=== PATIENT | male | born 1975 | race Caucasian/White ===

== ENCOUNTER → 2016-07-07 | Outpatient (CLI) | payer BC ==
--- NOTE | 2016-07-07 13:17 | CR ---
EXAMINATION: Lumbar spine HISTORY: Back pain COMPARISON: None TECHNIQUE: The lumbar spinal alignment is normal. The vertebral body heights and disc spaces appear well-maintained. Mild marginal osteophytes are noted. There is no fracture or acute osseous abnormal ity. Bone mineralization is normal. The SI joints are symmetric. FINDINGS/IMPRESSION: Early degenerative changes without acute findings.
== END ==
LOC: MW.CHIM 09:47
PROVIDERS: ATTEND Internal Medicine
DX: M54.9 Dorsalgia, unspecified (principal)
CPT/HCPCS: 72100; 72100-26

== ENCOUNTER 2018-11-25 04:11 | Emergency (ER) | payer BC ==
[2018-11-25] MEDS ORDERED: Sodium Chloride 0.9% 10 ML Syringe FLUSH PRN (04:12)
[2018-11-25] MEDS ORDERED: Sodium Chloride 0.9% 2.5 ML Syringe FLUSH PRN (04:12)
[2018-11-25] MEDS ORDERED: Ondansetron 4 MG/2 ML SDV IVPUSH ONE (04:19)
[2018-11-25] MEDS ORDERED: Sodium Chloride 0.9% 1,000 ML IV ONE (04:19)
[2018-11-25] MEDS ORDERED: Aspirin 81 MG Tab.Chew PO ONE (04:19)
[2018-11-25] MEDS ORDERED: Morphine 2 MG/ML Syringe IVPUSH ONE (04:19)
--- NOTE | 2018-11-25 04:24 | EDM.PDOC ---
ED HPI GENERAL MEDICAL PROBLEM - General Chief Complaint: Chest Pain Stated Complaint: CHEST PAIN, SHORTNESS OF BREATH Time Seen by Provider: 11/25/18 04:15 - History of Present Illness INITIAL COMMENTS - FREE TEXT/NARRATIVE: HISTORY AND PHYSICAL: History of present illness: The patient is a 43-year-old male who has a history of gastric bypass and smokes about half a pack of tobacco a day and has no other cardiac pulmonary or GI history and presents with sudden onset of bilateral chest pain underneath his breast area in the lower ribs radiating to his back that started while he was sleeping at 3:30 AM, proximally 45 minutes ago. The patient says that he had a normal day yesterday and a normally without nausea vomiting abdominal pain diarrhea chest pain or shortness of breath and has had no fevers chills or upper respiratory symptomatology. He said no urinary issues. He said he had a little bit of nausea yesterday but it went away and he did eat normally for dinner. He has no history of food intolerance and has never had any gallbladder issues that she is aware of peptic ulcer disease. He doesn't take a lot of medications for heartburn but does have heartburn on any regular basis. The patient says he was asleep and was awakened suddenly find this discomfort which felt like somebody had their hands around him and were squeezing him on both sides his lower chest wall radiating to his back. He was nauseated with this and very short of breath and he said that he rolled up into a ball because of the discomfort. When it woke him from sleep he rated as a 5/10 and then it went up to a 9/10 and is currently a 4/10 here in the ED and he did not take any medication for it. He has no leg pain or swelling. He currently denies any abdominal discomfort and denies any recent trauma. He says the pain is more inside and he feels like he can't take a deep breath because of the squeezing pressure pain. He says in the past he had high cholesterol but after his gastric bypass that seemed to resolve and he was taken off medications and he has no history of hypertension. Other than tobacco use has no significant social history and no significant family cardiac history Review of systems: As per history of present illness and below otherwise all systems reviewed and negative. Past medical history: As per history of present illness and as reviewed below otherwise noncontributory. Surgical history: As per history of present illness and as reviewed below otherwise noncontributory. Social history: No reported history of drug or alcohol abuse. Family history: As per history of present illness and as reviewed below otherwise noncontributory. Physical exam: General: Well-developed well-nourished man who looks uncomfortable but is speaking clearly without breathlessness and vital signs are noted by me. HEENT: Atraumatic, normocephalic, pupils reactive, negative for conjunctival pallor or scleral icterus, mucous membranes moist, throat clear, neck supple, nontender, trachea midline. Lungs: Clear to auscultation, breath sounds equal bilaterally, chest nontender. 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 Heart: S1S2, regular, negative for clicks, rubs, or JVD. Abdomen: Soft, nondistended, nontender. Negative for masses or hepatosplenomegaly. Negative for costovertebral tenderness. No stones are mildly hypoactive and there is absolutely no tenderness on deep palpation no tympani no rebound and no guarding Pelvis: Stable nontender. Genitourinary: Deferred. Rectal: Deferred. Extremities: Atraumatic, negative for cords or calf pain. Neurovascular unremarkable. No pedal edema Neuro: Awake, alert, oriented. Cranial nerves II through XII unremarkable. Cerebellum unremarkable. Motor and sensory unremarkable throughout. Exam nonfocal. Diagnostics: EKG chest x-ray CBC CMP amylase lipase INR troponin UA with reflex CT scan of the chest abdomen and pelvis Therapeutics: IV O2 monitor IV fluids aspirin morphine Blood pressure has normalized and patient has been resting comfortably without any pain or shortness of breath since arrival and receiving medications. We are currently awaiting the CT scan results and I will discuss all results with the patient and family at bedside. Patient and significant other bedside are aware of all testing results and the supposition that this was an episode of biliary colic as there is some mild kristen -cholecystic fluid without stones or gallbladder inflammation. I've advised the patient eat a low-fat diet and to follow-up with Dr. Osei and or our surgical group to have more testing on his gallbladder and to continue to monitor his symptoms. I will give him some medications for home and have advised him to push hydration and return as needed Impression: Upper abdominal/chest pain, likely biliary colic Definitive disposition and diagnosis as appropriate pending reevaluation and review of above. chest Pain Score (Numeric/FACES): 4 - Related Data Allergies Allergy/AdvReac Type Severity Reaction Status Date / Time No Known Allergies Allergy Verified 11/25/18 04:17 Home Meds: Home Meds . [No Known Home Meds] 02/15/14 [History] Past Medical History HEENT History: Reports: None Cardiovascular History: Reports: None Respiratory History: Reports: None Genitourinary History: Reports: None Musculoskeletal History: Reports: None Neurological History: Reports: None Psychiatric History: Reports: None Endocrine/Metabolic History: Reports: None Hematologic History: Reports: None Oncologic (Cancer) History: Reports: None Dermatologic History: Reports: None - Past Surgical History Other GI Surgeries/Procedures: gastric bypass Social & Family History - Family History Family Medical History: Noncontributory - Tobacco Use Smoking Status *Q: Current Every Day Smoker Years of Tobacco use: 20 Packs/Tins Daily: 0.5 - Recreational Drug Use Recreational Drug Use: No ED ROS GENERAL - Review of Systems Review Of Systems: ROS reveals no pertinent complaints other than HPI. ED EXAM, GENERAL - Physical Exam Exam: See Below (see Dictation) Course - Vital Signs Last Recorded V/S: Last Vital Signs Temp 36.3 C 11/25/18 04:14 Pulse 60 11/25/18 05:33 Resp 18 11/25/18 05:33 BP 119/77 11/25/18 05:33 Pulse Ox 100 11/25/18 05:33 - Orders/Labs/Meds Orders: Active Orders 24 hr Category Date Time Status Cardiac Monitoring [RC] . DIRECTED Care 11/25/18 04:12 Active EKG Documentation Completion [RC] STAT Care 11/25/18 04:12 Active Oxygen Therapy, ED [RC] ASDIRECTED Care 11/25/18 04:12 Active Pulse Oximetry [RC] ASDIRECTED Care 11/25/18 04:12 Active Sodium Chloride 0.9% [Saline Flush] Med 11/25/18 04:12 Active 10 ml FLUSH ASDIRECTED PRN Sodium Chloride 0.9% [Saline Flush] Med 11/25/18 04:12 Active 2.5 ml FLUSH ASDIRECTED PRN Saline Lock Insert [OM.PC] Stat Oth 11/25/18 04:12 Ordered Medication Orders Sodium Chloride (Saline Flush) 10 ml FLUSH ASDIRECTED PRN PRN Reason: Keep Vein Open Sodium Chloride (Saline Flush) 2.5 ml FLUSH ASDIRECTED PRN PRN Reason: Keep Vein Open Labs: Laboratory Tests 11/25/18 11/25/18 11/25/18 Range/Units 04:15 04:15 04:15 WBC 10.02 (4.0-11.0) K/uL RBC 4.91 (4.50-5.90) M/uL Hgb 14.6 (13.0-17.0) g/dL Hct 43.0 (38.0-50.0) % MCV 87.6 (80.0-98.0) fL MCH 29.7 (27.0-32.0) pg MCHC 34.0 (31.0-37.0) g/dL RDW Std Deviation 42.1 (28.0-62.0) fl RDW Coeff of Gabriel 13 (11.0-15.0) % Plt Count 199 (150-400) K/uL MPV 10.20 (7.40-12.00) fL Neut % (Auto) 47.2 L (48.0-80.0) % Lymph % (Auto) 41.9 H (16.0-40.0) % [place] % (Auto) 5.5 (0.0-15.0) % Eos % (Auto) 5.0 (0.0-7.0) % Baso % (Auto) 0.4 (0.0-1.5) % Neut # (Auto) 4.7 (1.4-5.7) K/uL Lymph # (Auto) 4.2 H (0.6-2.4) K/uL [place] # (Auto) 0.6 (0.0-0.8) K/uL Eos # (Auto) 0.5 (0.0-0.7) K/uL Baso # (Auto) 0.0 (0.0-0.1) K/uL Nucleated RBC % 0.0 /100WBC Nucleated RBCs # 0 K/uL INR 1.03 Sodium 143 (136-148) mmol/L Potassium 4.0 (3.5-5.1) mmol/L Chloride 107 (98-107) mmol/L Carbon Dioxide 22.6 (21.0-32.0) mmol/L BUN 16 (7.0-18.0) mg/dL Creatinine 1.1 (0.8-1.3) mg/dL Est Cr Clr Drug Dosing 94.06 mL/min Estimated GFR (MDRD) > 60.0 ml/min Glucose 98 (74-106) mg/dL Calcium 8.8 (8.5-10.1) mg/dL Total Bilirubin 0.6 (0.2-1.0) mg/dL AST 32 (15-37) IU/L ALT 25 (14-63) IU/L Alkaline Phosphatase 70 (46-116) U/L Troponin I < 0.050 (0.000-0.056) ng/mL Total Protein 7.0 (6.4-8.2) g/dL Albumin 3.9 (3.4-5.0) g/dL Globulin 3.1 (2.6-4.0) g/dL Albumin/Globulin Ratio 1.3 (0.9-1.6) Amylase 42 (25-115) U/L Lipase 123 (73-393) U/L Urine Color Urine Appearance Urine pH (5.0-8.0) Ur Specific [place] (1.001-1.035) Urine Protein (NEGATIVE) mg/dL Urine Glucose (UA) (NEGATIVE) mg/dL Urine Ketones (NEGATIVE) mg/dL Urine Occult Blood (NEGATIVE) Urine Nitrite (NEGATIVE) Urine Bilirubin (NEGATIVE) Urine Urobilinogen (<2.0) EU/dL Ur Leukocyte Esterase (NEGATIVE) 11/25/18 Range/Units 04:55 WBC (4.0-11.0) K/uL RBC (4.50-5.90) M/uL Hgb (13.0-17.0) g/dL Hct (38.0-50.0) % MCV (80.0-98.0) fL MCH (27.0-32.0) pg MCHC (31.0-37.0) g/dL RDW Std Deviation (28.0-62.0) fl RDW Coeff of Gabriel (11.0-15.0) % Plt Count (150-400) K/uL MPV (7.40-12.00) fL Neut % (Auto) (48.0-80.0) % Lymph % (Auto) (16.0-40.0) % [place] % (Auto) (0.0-15.0) % Eos % (Auto) (0.0-7.0) % Baso % (Auto) (0.0-1.5) % Neut # (Auto) (1.4-5.7) K/uL Lymph # (Auto) (0.6-2.4) K/uL [place] # (Auto) (0.0-0.8) K/uL Eos # (Auto) (0.0-0.7) K/uL Baso # (Auto) (0.0-0.1) K/uL Nucleated RBC % /100WBC Nucleated RBCs # K/uL INR Sodium (136-148) mmol/L Potassium (3.5-5.1) mmol/L Chloride (98-107) mmol/L Carbon Dioxide (21.0-32.0) mmol/L BUN (7.0-18.0) mg/dL Creatinine (0.8-1.3) mg/dL Est Cr Clr Drug Dosing mL/min Estimated GFR (MDRD) ml/min Glucose (74-106) mg/dL Calcium (8.5-10.1) mg/dL Total Bilirubin (0.2-1.0) mg/dL AST (15-37) IU/L ALT (14-63) IU/L Alkaline Phosphatase (46-116) U/L Troponin I (0.000-0.056) ng/mL Total Protein (6.4-8.2) g/dL Albumin (3.4-5.0) g/dL Globulin (2.6-4.0) g/dL Albumin/Globulin Ratio (0.9-1.6) Amylase (25-115) U/L Lipase (73-393) U/L Urine Color YELLOW Urine Appearance CLEAR Urine pH 6.0 (5.0-8.0) Ur Specific [place] 1.025 (1.001-1.035) Urine Protein NEGATIVE (NEGATIVE) mg/dL Urine Glucose (UA) NEGATIVE (NEGATIVE) mg/dL Urine Ketones NEGATIVE (NEGATIVE) mg/dL Urine Occult Blood NEGATIVE (NEGATIVE) Urine Nitrite NEGATIVE (NEGATIVE) Urine Bilirubin NEGATIVE (NEGATIVE) Urine Urobilinogen 0.2 (<2.0) EU/dL Ur Leukocyte Esterase NEGATIVE (NEGATIVE) Meds: Medications Generic Name Dose Route Start Last Admin Trade Name Freq PRN Reason Stop Dose Admin Sodium Chloride 10 ml 11/25/18 04:12 Saline Flush FLUSH ASDIRECTED PRN Keep Vein Open Sodium Chloride 2.5 ml 11/25/18 04:12 Saline Flush FLUSH ASDIRECTED PRN Keep Vein Open Discontinued Medications Generic Name Dose Route Start Last Admin Trade Name Freq PRN Reason Stop Dose Admin Aspirin 324 mg 11/25/18 04:19 11/25/18 04:24 Aspirin PO 11/25/18 04:20 324 mg ONETIME ONE Administration Sodium Chloride 1,000 mls @ 999 mls/hr 11/25/18 04:19 11/25/18 04:22 Normal Saline IV 11/25/18 05:19 999 mls/hr STAT ONE Administration Iopamidol 100 ml 11/25/18 05:21 11/25/18 05:21 Isovue Multipack-370 (76%) IVPUSH 11/25/18 05:22 100 ml ONETIME STA Administration Morphine Sulfate 4 mg 11/25/18 04:19 11/25/18 04:23 Morphine IVPUSH 11/25/18 04:20 4 mg ONETIME ONE Administration Ondansetron HCl 4 mg 11/25/18 04:19 11/25/18 04:23 Zofran IVPUSH 11/25/18 04:20 4 mg ONETIME ONE Administration Departure - Departure Time of Disposition: 06:40 Disposition: Home, Self-Care 01 Condition: Good Clinical Impression: Upper abdominal pain, Biliary colic, Atypical chest pain - Discharge Information Referrals: Veronica March [Primary Care Provider] - Forms: ED Department Discharge Additional Instructions: The following information is given to patients seen in the emergency department who are being discharged to home. This information is to outline your options for follow-up care. We provide all patients seen in our emergency department with a follow-up referral. The need for follow-up, as well as the timing and circumstances, are variable depending upon the specifics of your emergency department visit. If you don't have a primary care physician on staff, we will provide you with a referral. We always advise you to contact your personal physician following an emergency department visit to inform them of the circumstance of the visit and for follow-up with them and/or the need for any referrals to a consulting specialist. The emergency department will also refer you to a specialist when appropriate. This referral assures that you have the opportunity for followup care with a specialist. All of these measure are taken in an effort to provide you with optimal care, which includes your followup. Under all circumstances we always encourage you to contact your private physician who remains a resource for coordinating your care. When calling for followup care, please make the office aware that this follow-up is from your recent emergency room visit. If for any reason you are refused follow-up, please contact the emergency department at and ask to speak to the emergency department charge nurse. [facility] Primary care- Internal Medicine and Family [facility] [address] [place] [id number] [facility] Specialty Care-General Surgery Professional Building [address] [place] [address] [phone] Push hydration and avoid caffeinated products and eating a low-fat diet as we discussed. Use medications as needed and prescribed for discomfort or nausea. Please connect with your provider in the clinic as well as one of our surgical Associates for further testing and evaluation of your gallbladder as a cause of tinnitus events. Return to ER as needed and as discussed - My Orders Last 24 Hours: My Active Orders 11/25/18 04:12 Cardiac Monitoring [RC] . DIRECTED EKG Documentation Completion [RC] STAT Oxygen Therapy, ED [RC] ASDIRECTED Pulse Oximetry [RC] ASDIRECTED Sodium Chloride 0.9% [Saline Flush] 10 ml FLUSH ASDIRECTED PRN Sodium Chloride 0.9% [Saline Flush] 2.5 ml FLUSH ASDIRECTED PRN Saline Lock Insert [OM.PC] Stat - Assessment/Plan Last 24 Hours: My Active Orders 11/25/18 04:12 Cardiac Monitoring [RC] . DIRECTED EKG Documentation Completion [RC] STAT Oxygen Therapy, ED [RC] ASDIRECTED Pulse Oximetry [RC] ASDIRECTED Sodium Chloride 0.9% [Saline Flush] 10 ml FLUSH ASDIRECTED PRN Sodium Chloride 0.9% [Saline Flush] 2.5 ml FLUSH ASDIRECTED PRN Saline Lock Insert [OM.PC] Stat
[2018-11-25 04:48] LABS: BLOOD UREA NITROGEN,BUN 16 mg/dL (7.0-18.0); CARBON DIOXIDE,CO2 22.6 mmol/L (21.0-32.0); CHLORIDE,CL 107 mmol/L (98-107); GLUCOSE RANDOM 98 mg/dL (74-106); LIPASE 123 U/L (73-393); SODIUM,NA 143 mmol/L (136-148)
[2018-11-25] MEDS ORDERED: Iopamidol 755 MG/ML 500 ML Multipack Bottle IVPUSH STA (05:21)
--- NOTE | 2018-11-25 06:27 | CT ---
INDICATION: Pain. TECHNIQUE: CT of the abdomen and pelvis with IV contrast. 100 cc of Isovue-370 was administered. COMPARISON: None. FINDINGS: Left lower lobe pleural-based pulmonary nodule is better assessed on same-day CT chest. The liver, spleen, pancreas, adrenal glands and kidneys are unremarkable. Mild. Cholecystic fluid. Changes status post gastric bypass. Abdominal aorta is normal in caliber. No lymphadenopathy identified in the abdomen or pelvis. Urinary bladder is nondistended. Appendix is normal. No evidence of small-bowel obstruction. No free fluid or free air. Mild degenerative changes in the spine. IMPRESSION: 1. Mild pericholecystic fluid which is nonspecific. Consider further evaluation with right upper quadrant abdominal ultrasound if clinically indicated. 2. Otherwise no specific findings to account for patient`s pain. Please note that all CT scans at this facility use dose modulation, iterative reconstruction, and/or weight-based dosing when appropriate to reduce radiation dose to as low as reasonably achievable. Dictated by Lan Chinchilla MD @ Nov 25 2018 6:21AM Signed by Dr. Lan Chinchilla @ Nov 25 2018 6:25AM
--- NOTE | 2018-11-25 06:34 | CT ---
TECHNIQUE: CT angiography of the chest, PE protocol. 100 cc of IV Isovue-370 was administered. COMPARISON: None. INDICATION: Pain, shortness breath. FINDINGS: No lymphadenopathy identified in the chest. Gastric bypass changes are partially imaged. Small hiatal hernia. Please refer to same-day CT abdomen pelvis for complete evaluation of the abdomen. No pericardial effusion. Heart size is within normal limits. No filling defect to indicate acute PE. Caliber of the main pulmonary artery and thoracic aorta is within normal limits. No focal lung consolidation, pleural effusion or pneumothorax. Mild bronchial wall thickening. The bones are unremarkable in appearance. Pleural-based opacity in the left lower lobe seen on image [address] abdomen and pelvis, with no corresponding finding on the current CT chest, likely artifactual or due to inspiration differences. Otherwise no suspicious pulmonary nodule or mass. IMPRESSION: 1. No evidence of acute PE. 2. Mild bronchial wall thickening which can be seen in the setting of bronchitis. Please note that all CT scans at this facility use dose modulation, iterative reconstruction, and/or weight-based dosing when appropriate to reduce radiation dose to as low as reasonably achievable. Dictated by Lan Chinchilla MD @ Nov 25 2018 6:26AM Signed by Dr. Lan Chinchilla @ Nov 25 2018 6:32AM
--- NOTE | 2018-11-25 06:36 | CR ---
INDICATION: Pain. Shortness of breath TECHNIQUE: Chest 1 view COMPARISON: None FINDINGS: No focal lung consolidation, pleural effusion or pneumothorax. Cardiomediastinal silhouette is within normal limits. IMPRESSION: No acute or significant findings. Dictated by Lan Chinchilla MD @ Nov 25 2018 6:33AM Signed by Dr. Lan Chinchilla @ Nov 25 2018 6:33AM
== END 2018-11-25 06:50 | disposition home or self-care (01) ==
LOC: MW.ED 04:11
DX: R07.89 Other chest pain (principal); K80.50 Calculus of bile duct without cholangitis or cholecystitis without obstruction; F17.210 Nicotine dependence, cigarettes, uncomplicated; Z98.84 Bariatric surgery status
CPT/HCPCS: 36415; 71045; 71275; 74177; 80053; 81003; 82150; 83690; 84484; 85025; 85610; 93005; 96361; 96374; 96375; 99285; A9270; J2270; J2405; J7040; Q9967

== ENCOUNTER 2018-12-06 11:38 | Day surgery (SDC) | payer BC ==
[~2018-12-06 11:38] MED LIST: Lactated Ringers 1,000 ML IV SCH; Sodium Chloride 0.9% 10 ML SDV IV PRN; Sodium Chloride 0.9% 10 ML Syringe FLUSH PRN; Sodium Chloride 0.9% 2.5 ML Syringe FLUSH PRN
--- NOTE | 2018-12-06 12:15 | PCM.PREANE ---
Preanesthetic Assessment - Anesthesia/Transfusion/Family Hx Anesthesia History: Prior Anesthesia Without Reaction Family History of Anesthesia Reaction: No Transfusion History: No Prior Transfusion(s) - Review of Systems General: No Symptoms Pulmonary: No Symptoms Cardiovascular: No Symptoms Gastrointestinal: No Symptoms Neurological: No Symptoms Other: Reports: None - Physical Assessment NPO Status Date: 12/06/18 NPO Status Time: 00:00 Height: 6 ft Weight: 127.913 kg ASA Class: 2 Mental Status: Alert & Oriented x3 Airway Class: Mallampati = 2 Dentition: Reports: Normal Dentition Thyro-Mental Finger Breadths: 3 Mouth Opening Finger Breadths: 3 ROM/Head Extension: Full Lungs: Clear to Auscultation, Normal Respiratory Effort Cardiovascular: Regular Rate, Regular Rhythm - Allergies Allergies/Adverse Reactions: Allergies Allergy/AdvReac Type Severity Reaction Status Date / Time corn Allergy Wheezing Verified 12/01/18 11:22 - Blood Blood Available: No - Anesthesia Plan Pre-Op Medication Ordered: None - Acknowledgements Anesthesia Type Planned: MAC Pt an Appropriate Candidate for the Planned Anesthesia: Yes Alternatives and Risks of Anesthesia Discussed w Pt/Guardian: Yes Pt/Guardian Understands and Agrees with Anesthesia Plan: Yes PreAnesthesia Questionnaire HEENT History: Reports: Other (See Below) Other HEENT History: uses reading glasses Cardiovascular History: Reports: None Respiratory History: Reports: Asthma Other Respiratory History: hx of asthma as a child- does not use an inhaler now Genitourinary History: Reports: None Musculoskeletal History: Reports: Fracture Other Musculoskeletal History: hx of fx right wrist Neurological History: Reports: Concussion Psychiatric History: Reports: None Endocrine/Metabolic History: Reports: Obesity/BMI 30+ Hematologic History: Reports: None Oncologic (Cancer) History: Reports: None Dermatologic History: Reports: None - Past Surgical History GI Surgical History: Reports: Bariatric Procedure - SUBSTANCE USE Smoking Status *Q: Current Every Day Smoker Tobacco Use Within Last Twelve Months: Cigarettes Recreational Drug Use History: No - HOME MEDS Home Medications: Home Meds Ascorbic Acid [Vitamin C] 1 mg PO DAILY 12/01/18 [History] Flaxseed Oil 0 mg PO DAILY 12/01/18 [History] Krill Oil 0 mg PO DAILY 12/01/18 [History] Multivitamin/Iron/Folic Acid [Centrum Complete Multivit] 1 tab PO DAILY [History] Ondansetron [Zofran ODT] 4 mg PO ASDIRECTED PRN 12/01/18 [History] Vitamin B Complex 1 cap PO DAILY 12/01/18 [History] Vitamin E 0 unit PO DAILY 12/01/18 [History] traMADol [Ultram] 50 mg PO ASDIRECTED PRN 12/01/18 [History] - CURRENT (IN HOUSE) MEDS Current Meds: Current Medications Lactated Ringer's (Ringers, Lactated) 1,000 mls @ 125 mls/hr IV ASDIRECTED [place]LEY Sodium Chloride (Saline Flush) 10 ml FLUSH ASDIRECTED PRN PRN Reason: Keep Vein Open Sodium Chloride (Saline Flush) 2.5 ml FLUSH ASDIRECTED PRN PRN Reason: Keep Vein Open Sodium Chloride (Normal Saline) 10 ml IV ASDIRECTED PRN PRN Reason: IV Use
[2018-12-06] MEDS ORDERED: Propofol 200 MG/20 ML SDV ONE ×2 (12:28→12:44)
[2018-12-06] MEDS ORDERED: Benzocaine 20% Topical Spray UD MUCMEM ONE (12:31)
--- NOTE | 2018-12-06 13:15 | PCM.POSTAN ---
POST ANESTHESIA ASSESSMENT - MENTAL STATUS Mental Status: Alert, Oriented - VITAL SIGNS Vital Signs: Last Vital Signs Temp 98.1 F 12/06/18 11:55 Pulse 55 L 12/06/18 13:10 Resp 15 12/06/18 13:10 BP 113/71 12/06/18 13:10 Pulse Ox 96 12/06/18 13:10 - RESPIRATORY Respiratory Status: Respiratory Rate WNL, Airway Patent, O2 Saturation Stable - CARDIOVASCULAR CV Status: Pulse Rate WNL, Blood Pressure Stable - GASTROINTESTINAL GI Status: No Symptoms - PAIN Pain Score: 0 - POST OP HYDRATION Hydration Status: Adequate & Stable - OBSERVATIONS Free Text/Narrative:: Pt stable and coughing spell has subsided. VSS. No apparent anesthesia complications.
--- NOTE | 2018-12-06 14:01 | PCM48HPAN ---
Post Anesthesia Note - EVALUATION WITHIN 48HRS OF ANESTHETIC Vital Signs in Normal Range: Yes Patient Participated in Evaluation: Yes Respiratory Function Stable: Yes Airway Patent: Yes Cardiovascular Function Stable: Yes Hydration Status Stable: Yes Pain Control Satisfactory: Yes Nausea and Vomiting Control Satisfactory: Yes Mental Status Recovered: Yes Vital Signs: Last Vital Signs Temp 98.1 F 12/06/18 13:16 Pulse 55 L 12/06/18 13:16 Resp 16 12/06/18 13:16 BP 116/75 12/06/18 13:16 Pulse Ox 99 12/06/18 13:16 - COMMENTS/OBSERVATIONS Free Text/Narrative:: pt discharged by nurse, data is entered upon nurses report to me.
--- NOTE | 2018-12-06 15:05 | PCM.OPNOTE ---
- General Post-Op/Procedure Note Date of Surgery/Procedure: 12/06/18 Operative Procedure(s): EGD with biopsy Findings: Normal EGD Pre Op Diagnosis: Epigastric pain Post-Op Diagnosis: same Anesthesia Technique: RODRIGO Primary Surgeon: Michelle Jarrell Condition: Good Free Text/Narrative:: Intake & Output 12/06/18 12/06/18 12/06/18 06:59 14:59 22:59 Intake Total 1200 Balance 1200
--- NOTE | 2018-12-06 17:31 | OR ---
SURGEON: MICHELLE JARRELL MD DATE OF PROCEDURE: 12/06/2018 PREOPERATIVE DIAGNOSIS: Epigastric pain. POSTOPERATIVE DIAGNOSIS: Epigastric pain. PROCEDURE PERFORMED: Diagnostic esophagogastroduodenoscopy with biopsy. PRIMARY SURGEON: Michelle Jarrell MD. ANESTHESIA: MAC. INSTRUMENT USED: Olympus endoscope. EXTENT OF EXAM: To the Pedro limb. PREPARATION: Good. LIMITATIONS: None. INDICATIONS FOR EXAMINATION: The patient is a 43-year-old male with a past medical history of a Pedro-en-Y gastric bypass. He has been having sharp epigastric pain and is here for a workup. I explained the need for diagnostic EGD. He is scheduled for right upper quadrant ultrasound as well. I explained the procedure; expected perioperative course; and the risks including bleeding, infection, or damage to surrounding structures including perforation. The patient verbalized understanding and wishes to proceed. PROCEDURE IN DETAIL: The patient was brought into the endoscopy suite and placed in a beach chair position. A time-out was completed verifying the patient's name, age, date of , allergies, and procedure to be performed. Monitored anesthesia care was induced and a bite block was placed in the patient's mouth. Continuous oxygen was provided via nasal cannula throughout the procedure. After adequate sedation was achieved, a well-lubricated endoscope was placed in the patient's mouth and advanced under direct visualization to the Pedro limb. A photograph was taken of the Pedro limb, which appeared normal. The patient then started developing severe cough and the scope was then removed to allow suctioning and to secure the patient's airway. The patient was placed in a right lateral decubitus position and once his oxygen saturations improved, I placed my endoscope back into the mouth and advanced under direct visualization to the same level. The scope was then fully withdrawn while examining the upper GI tract. The GJ anastomosis appeared normal with no evidence of inflammation or ulceration. A photograph was taken of this. The gastric pouch had no evidence of any pathology. A biopsy was taken of the gastric pouch and sent to Pathology, labeled as stomach biopsy. The scope was then brought into the distal esophagus. The Z-line appeared normal. A biopsy was taken of the distal esophageal mucosa approximately 2 cm above the Z-line and sent to Pathology for testing. The remainder of the esophagus appeared normal. The scope was removed and the procedure terminated. The patient was transferred to the PACU in stable condition. ENDOSCOPIC DIAGNOSIS: Epigastric abdominal pain. RECOMMENDATIONS: The patient has an ultrasound scheduled for tomorrow, and we will follow up on the results of this as well as the Pathology results in 2 weeks. JANES PATRICK /[id number]
== END 2018-12-06 13:42 | disposition home or self-care (01) ==
LOC: MW.SDS 11:38
PROVIDERS: ATTEND Surgery
DX: K20.9 Esophagitis, unspecified (principal); E78.5 Hyperlipidemia, unspecified; J45.909 Unspecified asthma, uncomplicated; E78.00 Pure hypercholesterolemia, unspecified; I10 Essential (primary) hypertension; E66.9 Obesity, unspecified; Z98.84 Bariatric surgery status; Z91.018 Allergy to other foods; Z79.899 Other long term (current) drug therapy; Z87.891 Personal history of nicotine dependence; Z68.38 Body mass index [BMI] 38.0-38.9, adult
CPT/HCPCS: 43239; A9270; J2001; J2704; J7120; 88305; 88312

== ENCOUNTER 2018-12-20 06:32 | Day surgery (SDC) | payer BC ==
[~2018-12-20 06:32] MED LIST changes: +ceFAZolin 2 GM in Premix Bag 1 BAG IV SCH
[2018-12-20] MEDS ORDERED: Midazolam 1 MG/ML 2 ML SDV ONE (07:19)
[2018-12-20] MEDS ORDERED: fentaNYL 100 MCG/2 ML SDV ONE (07:19)
[2018-12-20] MEDS ORDERED: Propofol 200 MG/20 ML SDV ONE (07:20)
[2018-12-20] MEDS ORDERED: Rocuronium 100 MG/10 ML Syringe ONE ×2 (07:20→09:04)
[2018-12-20] MEDS ORDERED: Lidocaine 2% 5 ML SDV ONE (07:20)
[2018-12-20] MEDS ORDERED: Scopolamine 1.5 MG Transdermal Patch TRDERM PRN (07:23)
--- NOTE | 2018-12-20 07:25 | PCM.PREANE ---
Preanesthetic Assessment - Anesthesia/Transfusion/Family Hx Anesthesia History: Prior Anesthesia Without Reaction Family History of Anesthesia Reaction: No Transfusion History: No Prior Transfusion(s) - Review of Systems General: No Symptoms Pulmonary: No Symptoms Cardiovascular: No Symptoms Gastrointestinal: No Symptoms Neurological: No Symptoms Other: Reports: None - Physical Assessment Vital Signs: Last Vital Signs Temp 98.8 F 12/20/18 07:18 Pulse 59 L 12/20/18 07:18 Resp 16 12/20/18 07:18 BP 128/81 12/20/18 07:18 Pulse Ox 97 12/20/18 07:18 Height: 6 ft Weight: 127.913 kg ASA Class: 2 Mental Status: Alert & Oriented x3 Airway Class: Mallampati = 2 ROM/Head Extension: Full Lungs: Clear to Auscultation, Normal Respiratory Effort Cardiovascular: Regular Rate, Regular Rhythm - Allergies Allergies/Adverse Reactions: Allergies Allergy/AdvReac Type Severity Reaction Status Date / Time corn Allergy Wheezing Verified 12/19/18 07:02 - Anesthesia Plan Pre-Op Medication Ordered: Other (scop) - Acknowledgements Anesthesia Type Planned: General Anesthesia Pt an Appropriate Candidate for the Planned Anesthesia: Yes Alternatives and Risks of Anesthesia Discussed w Pt/Guardian: Yes Pt/Guardian Understands and Agrees with Anesthesia Plan: Yes PreAnesthesia Questionnaire HEENT History: Reports: Other (See Below) Other HEENT History: uses reading glasses Cardiovascular History: Reports: Other (See Below) Other Cardiovascular History: HTN before gastric bypass Respiratory History: Reports: Asthma Other Respiratory History: hx of asthma as a child- does not use an inhaler now Gastrointestinal History: Reports: Cholelithiasis Genitourinary History: Reports: None Musculoskeletal History: Reports: Fracture Other Musculoskeletal History: hx of fx right wrist Neurological History: Reports: Concussion Psychiatric History: Reports: None Endocrine/Metabolic History: Reports: Obesity/BMI 30+ Hematologic History: Reports: None Immunologic History: Reports: None Oncologic (Cancer) History: Reports: None Dermatologic History: Reports: None - Past Surgical History Head Surgeries/Procedures: Reports: None HEENT Surgical History: Reports: None Cardiovascular Surgical History: Reports: None Respiratory Surgical History: Reports: None GI Surgical History: Reports: Bariatric Procedure, EGD Other GI Surgeries/Procedures: gastric bypass Male Surgical History: Reports: None Endocrine Surgical History: Reports: None Neurological Surgical History: Reports: None Musculoskeletal Surgical History: Reports: Arthroscopic Knee Oncologic Surgical History: Reports: None Dermatological Surgical History: Reports: None - SUBSTANCE USE Smoking Status *Q: Current Every Day Smoker Tobacco Use Within Last Twelve Months: Cigarettes - HOME MEDS Home Medications: Home Meds Multivitamin/Iron/Folic Acid [Centrum Complete Multivit] 1 tab PO DAILY [History] traMADol [Ultram] 50 mg PO ASDIRECTED PRN 12/01/18 [History] - CURRENT (IN HOUSE) MEDS Current Meds: Current Medications Lactated Ringer's (Ringers, Lactated) 1,000 mls @ 125 mls/hr IV ASDIRECTED [facility] Last Admin: 12/20/18 07:02 Dose: 125 mls/hr Sodium Chloride (Saline Flush) 10 ml FLUSH ASDIRECTED PRN PRN Reason: Keep Vein Open Sodium Chloride (Saline Flush) 2.5 ml FLUSH ASDIRECTED PRN PRN Reason: Keep Vein Open Sodium Chloride (Normal Saline) 10 ml IV ASDIRECTED PRN PRN Reason: IV Use Discontinued Medications Fentanyl (Sublimaze) Confirm Administered Dose 100 mcg .ROUTE .STK-MED ONE Stop: 12/20/18 07:20 Cefazolin Sodium/Dextrose 2 gm (/ Premix) 50 mls @ 100 mls/hr IV Q8H [facility] Stop: 12/19/18 23:14 Lidocaine (Xylocaine-Mpf 2%) Confirm Administered Dose 5 ml .ROUTE .STK-MED ONE Stop: 12/20/18 07:21 Midazolam HCl (Versed 1 Mg/Ml) Confirm Administered Dose 2 mg .ROUTE .STK-MED ONE Stop: 12/20/18 07:20 Propofol (Diprivan 20 Ml) Confirm Administered Dose 200 mg .ROUTE .STK-MED ONE Stop: 12/20/18 07:21 Rocuronium Robertson (Zemuron) Confirm Administered Dose 100 mg .ROUTE .STK-MED ONE Stop: 12/20/18 07:21
[2018-12-20] MEDS ORDERED: Bupivacaine 0.5% 30 ML SDV ONE (07:35)
[2018-12-20] MEDS ORDERED: Glycopyrrolate 0.2 MG/ML SDV ONE ×2 (08:21)
[2018-12-20] MEDS ORDERED: cefOXitin 1 GM Vial ONE (08:23)
[2018-12-20] MEDS ORDERED: ceFAZolin/Dextrose,Iso-Osmotic 2 GM/50 ML Duplex Bag IV ONE (08:25)
[2018-12-20] MEDS ORDERED: ceFAZolin 1 GM Vial ONE (08:27)
[2018-12-20] MEDS ORDERED: HYDROmorphone 2 MG/ML Syringe ONE (08:50)
[2018-12-20] MEDS ORDERED: Sugammadex Sodium 200 MG/2 ML VIAL ONE (09:36)
[2018-12-20] MEDS ORDERED: Ondansetron 4 MG/2 ML SDV ONE (09:41)
[2018-12-20] MEDS ORDERED: Ketorolac 30 MG/ML SDV ONE (09:42)
[2018-12-20] MEDS ORDERED: Meperidine PF 25 MG/ML Syringe ONE (10:10)
--- NOTE | 2018-12-20 10:31 | PCM.OPNOTE ---
- General Post-Op/Procedure Note Date of Surgery/Procedure: 12/20/18 Operative Procedure(s): Laparoscopic cholecystectomy Findings: Moderately inflamed gallbladder with omental adhesions Pre Op Diagnosis: Symptomatic cholelithiasis Post-Op Diagnosis: same Anesthesia Technique: General ET Tube Primary Surgeon: Michelle Jarrell Fluid Replacement, Intraop: 2,000 Output, Urine Amount: 350 EBL in mLs: 10 Condition: Good
--- NOTE | 2018-12-20 10:43 | PCM.POSTAN ---
POST ANESTHESIA ASSESSMENT - MENTAL STATUS Mental Status: Alert, Oriented - VITAL SIGNS Vital Signs: Last Vital Signs Temp 36.5 C 12/20/18 10:07 Pulse 69 12/20/18 10:37 Resp 15 12/20/18 10:37 BP 134/81 12/20/18 10:37 Pulse Ox 95 12/20/18 10:37 - RESPIRATORY Respiratory Status: Respiratory Rate WNL, Airway Patent - CARDIOVASCULAR CV Status: Pulse Rate WNL, Blood Pressure Stable - GASTROINTESTINAL GI Status: No Symptoms - POST OP HYDRATION Hydration Status: Adequate & Stable
[2018-12-20] MEDS ORDERED: Acetaminophen/oxyCODONE 325-5 MG Tab PO ONE (11:59)
--- NOTE | 2018-12-20 12:43 | PCM48HPAN ---
Post Anesthesia Note - EVALUATION WITHIN 48HRS OF ANESTHETIC Vital Signs in Normal Range: Yes Patient Participated in Evaluation: Yes Respiratory Function Stable: Yes Airway Patent: Yes Cardiovascular Function Stable: Yes Hydration Status Stable: Yes Pain Control Satisfactory: Yes Nausea and Vomiting Control Satisfactory: Yes Mental Status Recovered: Yes Vital Signs: Last Vital Signs Temp 97.7 F 12/20/18 10:07 Pulse 69 12/20/18 10:37 Resp 15 12/20/18 10:37 BP 134/81 12/20/18 10:37 Pulse Ox 95 12/20/18 10:37
--- NOTE | 2018-12-21 15:44 | OR ---
SURGEON: MICHELLE STEVE MD DATE OF PROCEDURE: 12/20/2018 PREOPERATIVE DIAGNOSIS: Symptomatic cholelithiasis. POSTOPERATIVE DIAGNOSIS: Symptomatic cholelithiasis. PROCEDURE PERFORMED: Laparoscopic cholecystectomy. PRIMARY SURGEON: Michelle Steve MD. ANESTHESIA: General endotracheal anesthesia. FLUIDS: 2000 mL crystalloid. ESTIMATED BLOOD LOSS: 10 mL. URINE OUTPUT: 350 mL. FINDINGS: A moderately-inflamed gallbladder with omental adhesions. COMPLICATIONS: None. INDICATIONS: The patient is a 43-year-old male who presents with symptomatic cholelithiasis. I explained the need for a laparoscopic possible open cholecystectomy. I explained the procedure, expected perioperative course, and risks including bleeding, infection, or damage to surrounding structures. He verbalized understanding and wishes to proceed. PROCEDURE IN DETAIL: The patient was brought into the OR and placed on the table in supine position. A time-out was completed verifying the patient's name, age, date of , allergies, and procedure to be performed. General endotracheal anesthesia was induced. The left arm was tucked to the patient's side and a Fonseca catheter placed. The abdomen was prepped and draped in usual standard fashion. I anesthetized the supraumbilical fold with 0.5% Marcaine plain. An 11 blade was used to make a 3 cm supraumbilical incision. Using cautery, I dissected down to the level of subcutaneous fat. I bluntly dissected down to the level of fascia. The fascia was elevated with Faustino's and incised sharply with a curved Davis scissors. Entry into the abdomen was palpated digitally. A 12 mm Elvis trocar was placed in the abdomen and it was insufflated with carbon dioxide. A 5 mm 30 degree scope was inserted and I inspected the area underneath my initial trocar placement. No damage to surrounding structures was noted. The patient was placed in reverse Trendelenburg position and airplaned slightly to the left. Trocars were placed in the following locations under direct visualization: One 5 mm trocar in the epigastric area, one in the right flank, and one 2 fingerbreadths below the right subcostal margin in the midclavicular line. The dome of the gallbladder was grasped and elevated. The patient's omentum was densely adhered to the medial liver edge right next to the gallbladder wall. In order to safely mobilize the gallbladder and continued my dissection, I had to take these omental adhesions down. I carefully dissected through them using the hook cautery taking care to ensure no damage occurred to surrounding structures. Once this was down far enough that I could visualize the infundibulum, I turned my attention to the gallbladder wall. The gallbladder appeared moderately inflamed with some inflammatory adhesions around the proximal half. These were carefully dissected off using hook cautery as well. Once I had freed up enough of these adhesions, I was able to then manipulate the gallbladder and begin my dissection around the critical structures. DICTATION ENDS HERE. JANES PATRICK /[id number]
--- NOTE | 2018-12-21 17:49 | OR ---
SURGEON: MICHELLE JARRELL MD DATE OF PROCEDURE: 12/20/2018 PREOPERATIVE DIAGNOSIS: Symptomatic cholelithiasis. POSTOPERATIVE DIAGNOSIS: Symptomatic cholelithiasis. PROCEDURE PERFORMED: Laparoscopic cholecystectomy. PRIMARY SURGEON: Michelle Jarrell MD. ANESTHESIA: General endotracheal anesthesia. FLUIDS: 2000 mL of crystalloid. ESTIMATED BLOOD LOSS: 10 mL. URINE OUTPUT: 350 mL. FINDINGS: Moderately enlarged gallbladder with inflammatory adhesions. COMPLICATIONS: None. INDICATIONS: The patient is a 43-year-old male who presents with symptomatic cholelithiasis. I explained the need for cholecystectomy. The patient and I discussed the procedure; expected perioperative course; and risks including structures including perforation. The patient verbalized understanding and wishes to proceed. PROCEDURE IN DETAIL: The patient was brought into the endoscopy suite and placed in the left lateral decubitus position. DICTATION ENDS HERE. JANES PATRICK /[id number]
--- NOTE | 2018-12-22 16:50 | OR ---
SURGEON: ERNESTINE STEVE MD DATE OF PROCEDURE: 12/20/2018 PREOPERATIVE DIAGNOSIS: Symptomatic cholelithiasis. POSTOPERATIVE DIAGNOSIS: Symptomatic cholelithiasis. PROCEDURE PERFORMED: Laparoscopic cholecystectomy with lysis of adhesions. ANESTHESIA: General endotracheal anesthesia. FLUIDS: 2000 mL crystalloid. ESTIMATED BLOOD LOSS: 10 mL. URINE OUTPUT: 350 mL. FINDINGS: Moderately inflamed gallbladder with omental adhesions. COMPLICATIONS: None. INDICATIONS: The patient is a 43-year-old male with symptomatic cholelithiasis. I explained the need for a cholecystectomy. I will attempt it laparoscopically, but should I be unable to perform it safely, we will convert it to open. I explained the expected perioperative course as well as the risks including bleeding, infection, or damage to surrounding structures. He verbalized understanding and wishes to proceed. PROCEDURE IN DETAIL: The patient was brought into the OR and placed on the OR table in supine position. A time-out was completed verifying the patient's name, age, date of , allergies, and procedure to be performed. General and endotracheal anesthesia was induced. The left arm was tucked to the patient's side and a Fonseca catheter placed. The abdomen was then prepped and draped in usual standard fashion. I anesthetized the supraumbilical fold with 0.5% Marcaine plain. An 11 blade was used to make an incision along the supraumbilical fold. I used cautery to dissect down to the level of subcutaneous fat. I then bluntly dissected down to the fascia. The fascia was elevated with Faustino's and incised sharply with the Davis scissors. Entry into the abdomen was palpated digitally. A 12 mm Elvis trocar was placed into the abdomen and it was insufflated. A 5 mm 30-degree scope was inserted and I inspected the area underneath my initial trocar placement. No damage to surrounding structures was noted. The patient was placed in reverse Trendelenburg position and airplaned slightly to the left. 5 mm trocars were placed under direct visualization in the following locations, one in the epigastric area, one in the right flank, and one 2 fingerbreadths below the right subcostal margin along the midclavicular line. The dome of the gallbladder was grasped and elevated. I immediately noted omental adhesions along the medial aspect of the gallbladder wall. These adhesions extended on to the liver bed itself. Careful dissection was undertaken using hook cautery to take down these adhesions and free up the gallbladder and the liver bed. This was done in distal to proximal fashion. Once these adhesions were taken down, I was then able to fully elevate my gallbladder above the dome of the of the liver. The infundibulum was then exposed. There was moderate inflammation and some adhesions along this area. A combination of blunt dissection and hook cautery was used to take down these attachments carefully. I was then able to identify both my cystic duct and artery. I cleared off one half of the proximal cystic plate to allow adequate visualization of my critical view. Once this was achieved, a photograph was taken and I doubly clipped and ligated my cystic duct and artery. The gallbladder was then removed from the remaining gallbladder fossa attachments using hook cautery. The gallbladder was then placed into an EndoCatch bag and removed through the supraumbilical port site. The camera was reinserted, and I inspected my operative field. It appeared to be hemostatic and there was no evidence of bile leakage. I irrigated the abdomen with 1 L normal saline and suctioned this out. The 5 mm trocars were then removed under direct visualization and the abdomen allowed to desufflate. The 12 mm Elvis trocar was removed. I closed the fascia at the supraumbilical port site with interrupted 0 Vicryl sutures. The subcutaneous fat layer was closed with interrupted 3-0 Vicryl sutures and the skin was closed with a running 4-0 Monocryl stitch. The 5 mm trocar sites were closed with interrupted 4-0 Monocryl sutures. Steri-Strips and sterile dressings were applied. All counts were complete and correct at the end of the case. The patient was extubated and taken to the PACU in stable condition. JANES PATRICK /[id number]
== END 2018-12-20 12:50 | disposition home or self-care (01) ==
LOC: MW.SDS 06:32
PROVIDERS: ATTEND Surgery
DX: K80.10 Calculus of gallbladder with chronic cholecystitis without obstruction (principal); I10 Essential (primary) hypertension; J45.909 Unspecified asthma, uncomplicated; F17.210 Nicotine dependence, cigarettes, uncomplicated; E66.9 Obesity, unspecified; Z79.899 Other long term (current) drug therapy; Z91.018 Allergy to other foods; Z68.38 Body mass index [BMI] 38.0-38.9, adult
CPT/HCPCS: 47562; A9270; J0690; J1170; J1885; J2001; J2250; J2405; J2704; J3010; J3490; J7120; J0694